=== PATIENT | female | born 1995 | race Hispanic/Latino ===

== ENCOUNTER 2017-01-21 20:14 | Emergency (ER) | payer OTHER ==
[~2017-01-21] VITALS: Ht 160 cm; Wt 54.4 kg
[~2017-01-21 20:14] MED LIST: AMOXICILLIN500 MG PO; DEPO-PROVE150 MG/1 M IM; ESCITALOPRAM OX10 MG PO; IBUPROFEN600 MG PO; IBUPROFEN800 MG PO; NORCO 5-325 TA1 EACH PO; TRINESSA LO TA1 EACH PO
[2017-01-21] MEDS ORDERED: MICROGESTIN FE1 EACH PO (20:45)
[2017-01-21] MEDS ORDERED: VENTOLIN HFA18 GM (20:45)
[2017-01-21] MEDS ORDERED: ZOFRAN ODT4 MG PO (20:53)
== END 2017-01-21 21:04 | disposition home or self-care (01) ==
LOC: ED 20:14
DX: A08.4 Viral intestinal infection, unspecified (principal); F17.200 Nicotine dependence, unspecified, uncomplicated
CPT/HCPCS: 99283

== ENCOUNTER 2017-02-24 19:29 | Emergency (ER) | payer OTHER ==
[~2017-02-24] VITALS: Ht 160 cm; Wt 54.4 kg
[~2017-02-24 19:29] MED LIST changes: +MICROGESTIN FE1 EACH PO; +VENTOLIN HFA18 GM; +ZOFRAN ODT4 MG PO
[2017-02-24] MEDS ORDERED: BACTRIM DS TAB1 EACH PO (19:44)
[2017-02-24] MEDS ORDERED: TRAMADOL HCL50 MG PO (23:11)
== END 2017-02-24 23:25 | disposition home or self-care (01) ==
LOC: ED 19:29
DX: N83.202 Unspecified ovarian cyst, left side (principal); F17.200 Nicotine dependence, unspecified, uncomplicated; Z79.899 Other long term (current) drug therapy
CPT/HCPCS: 74177; 80053; 81001; 84703; 85025; 96361; 96374; 99284; J1885; J7030; Q9967

== ENCOUNTER 2017-05-08 18:48 | Emergency (ER) | payer OTHER ==
[~2017-05-08] VITALS: Ht 160 cm; Wt 55.8 kg
[~2017-05-08 18:48] MED LIST changes: +BACTRIM DS TAB1 EACH PO; +TRAMADOL HCL50 MG PO
[2017-05-24] MEDS ORDERED: PRENATAL GUMMI1 EACH PO (00:20)
== END 2017-05-08 21:43 | disposition home or self-care (01) ==
LOC: ED 18:48
DX: R10.30 Lower abdominal pain, unspecified (principal); Z33.1 Pregnant state, incidental; F17.200 Nicotine dependence, unspecified, uncomplicated; Z79.899 Other long term (current) drug therapy
CPT/HCPCS: 36415; 80053; 81001; 84702; 84703; 85025; 99283

== ENCOUNTER 2017-05-23 23:40 | Emergency (ER) | payer OTHER ==
[~2017-05-23] VITALS: Ht 160 cm; Wt 55.3 kg
[2017-05-24] MEDS ORDERED: PRENATAL GUMMI1 EACH PO ×2 (00:20)
[2017-05-24] MEDS ORDERED: REGLAN10 MG PO (00:27)
[2017-05-24] MEDS ORDERED: DICLEGIS DR 101 EACH PO (01:44)
== END 2017-05-24 02:58 | disposition home or self-care (01) ==
LOC: ED 23:40
DX: O21.9 Vomiting of pregnancy, unspecified (principal); Z87.891 Personal history of nicotine dependence; Z79.899 Other long term (current) drug therapy; Z3A.01 Less than 8 weeks gestation of pregnancy
CPT/HCPCS: 80053; 81001; 85025; 96361; 96374; 99283; J2405; J7030; J7040

== ENCOUNTER 2017-05-25 19:17 | Emergency (ER) | payer OTHER ==
[~2017-05-25] VITALS: Ht 160 cm; Wt 54.4 kg
[~2017-05-25 19:17] MED LIST changes: +DICLEGIS DR 101 EACH PO; +PRENATAL GUMMI1 EACH PO; +REGLAN10 MG PO
== END 2017-05-25 23:52 | disposition home or self-care (01) ==
LOC: ED 19:17
DX: O21.0 Mild hyperemesis gravidarum (principal); Z79.899 Other long term (current) drug therapy; Z3A.01 Less than 8 weeks gestation of pregnancy
CPT/HCPCS: 80053; 81001; 83690; 85025; 96374; 99283; J2405

== ENCOUNTER 2017-06-17 21:02 | Emergency (ER) | payer OTHER ==
[~2017-06-17] VITALS: Ht 160 cm; Wt 50.4 kg
[2017-06-17] MEDS ORDERED: ONDANSETRON ODT8 MG PO (21:23)
== END 2017-06-18 00:54 | disposition home or self-care (01) ==
LOC: ED 21:02
DX: O26.851 Spotting complicating pregnancy, first trimester (principal); Z79.899 Other long term (current) drug therapy; Z3A.10 10 weeks gestation of pregnancy
CPT/HCPCS: 76801; 80048; 81001; 84702; 85025; 96361; 96374; 99284; J2550; J7030

== ENCOUNTER 2019-05-02 17:35 | Emergency (ER) | payer OTHER ==
[~2019-05-02] VITALS: Ht 160 cm; Wt 50.4 kg
[~2019-05-02 17:35] MED LIST changes: +ONDANSETRON ODT8 MG PO
[2019-05-02] MEDS ORDERED: VITAMIN D21250 MCG PO (17:50)
[2019-05-02] MEDS ORDERED: DULOXETINE HCL30 MG PO (17:50)
[2019-05-02] MEDS ORDERED: NORCO 5-325 TA1 EACH PO (20:09)
[2019-05-02] MEDS ORDERED: BACTRIM DS TAB1 EACH PO (20:09)
== END 2019-05-02 22:54 | disposition home or self-care (01) ==
LOC: ED 17:35
DX: N39.0 Urinary tract infection, site not specified (principal); N83.202 Unspecified ovarian cyst, left side; Z79.899 Other long term (current) drug therapy
CPT/HCPCS: 76770; 76830; 76856; 80053; 81001; 84703; 85025; 87210; 87491; 87591; 96361; 99284-25; J1885; J2405; J7030

== ENCOUNTER 2019-06-15 22:29 | Emergency (ER) | payer OTHER ==
[~2019-06-15] VITALS: Ht 160 cm; Wt 65.8 kg
[~2019-06-15 22:29] MED LIST changes: +DULOXETINE HCL30 MG PO; +VITAMIN D21250 MCG PO
--- OUTSIDE RECORDS SUMMARY | 2019-06-15 22:32 | XMS ---
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 E.D. VISIT COUNT (12 MO.) [address] [facility] TOTAL 2 NOTE: Visits indicate total known visits. 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
== END 2019-06-16 00:30 | disposition home or self-care (01) ==
LOC: ED 22:29
DX: O99.89 Other specified diseases and conditions complicating pregnancy, childbirth and the puerperium (principal); M54.6 Pain in thoracic spine
CPT/HCPCS: 81001; 84703; 99283

== ENCOUNTER 2019-06-28 13:21 | Emergency (ER) | payer OTHER ==
[~2019-06-28] VITALS: Ht 160 cm; Wt 65.8 kg
--- OUTSIDE RECORDS SUMMARY | 2019-06-28 13:24 | XMS ---
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 Gurdeep/[place] Office: , [place] Office: [phone].\T\nbsp; [facility]: [phone]. E.D. VISIT COUNT (12 MO.) [address] [facility] TOTAL 3 NOTE: Visits indicate total known visits. ED/UCC VISIT TRACKING (12 MO.) 06/28/2019 13:22 [facility] TYPE: Emergency COMPLAINT: - DEHYDRATION, URINE PROBLEM, 6 WKS PREG. 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
[2019-06-28] MEDS ORDERED: ONDANSETRON ODT4 MG PO (13:41)
== END 2019-06-28 14:05 | disposition left against medical advice (07) ==
LOC: ED 13:21
DX: O21.9 Vomiting of pregnancy, unspecified (principal); Z3A.01 Less than 8 weeks gestation of pregnancy; Z87.891 Personal history of nicotine dependence
CPT/HCPCS: 81001; 99284

== ENCOUNTER 2019-08-24 22:56 | Emergency (ER) | payer OTHER ==
[~2019-08-24] VITALS: Ht 160 cm; Wt 65.8 kg
--- OUTSIDE RECORDS SUMMARY | ~2019-08-24 | XMS | Clinical Summary ---
Demographics + + + | Address | [address] | | | [place] [address] | + + + | Home Phone | | + + + | Preferred Language | Unknown | + + + | Marital Status | Single | + + + | Congregation Affiliation | Unknown | + + + | Race | Unknown | + + + | Ethnic Group | Unknown | + + + Author + + + | Author | [facility] (Historical as of | | | 12-14-18) | + + + | Organization | [facility] (Historical as of | | | 12-14-18) | + + + | Address | Unknown | + + + | Phone | Unavailable | + + + Support + + +---------+ + | Name | Relationship | Address | Phone | + + +---------+ + | Chandu Sunshine | ECON | Unknown | | + + +---------+ + Care Team Providers + +------+ + | Care Weir Fisherman Name | Role | Phone | + +------+ + | Andria Bryant PA-C | PP | | + +------+ + Allergies No Known Allergies Current Medications + +------+-------+---------+------+------+-------+ | Prescription | Sig. | Disp. 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 | 11/11/2018 | + + + + + | Overview: Added automatically from request for surgery [id number] | + + + + + | Ganglion cyst of volar aspect of right wrist | 11/11/2018 | + + + + + | Overview: Added automatically from request for surgery [id number] | + + Social History + +-------+ +--------+------+ | Tobacco Use | Types | Packs/Day | Years | Date | | | | | Used | | + +-------+ +--------+------+ | Current Every Day | | | | | | Smoker | | | | | + +-------+ +--------+------+ + +---+---+---+ | Smokeless Tobacco: | | | | | Never Used | | | | + +---+---+---+ + + | Comments: ONE CIG PER DAY | + + + + +---------+ + | Alcohol Use | Drinks/We | oz/Week | Comments | | | ek | | | + + +---------+ + | Yes | | | 2-3 DRINKS PER MONTH | + + +---------+ + + + + | Sex Assigned at | Date Recorded | | | | + + + | Not on file | | + + + Last Filed Vital Signs + + + + | Vital Sign | Reading | Time Taken | + + + + | Blood Pressure | 100/65 | 12/13/2018 12:30 PM PDT | + + + + | Pulse | 68 | 12/13/2018 12:30 PM PDT | + + + + | Temperature | 36.2 C (97.1 F) | 12/13/2018 12:25 PM PDT | + + + + | Respiratory Rate | 16 | 12/13/2018 12:29 PM PDT | + + + + | Oxygen Saturation | 95% | 12/13/2018 12:30 PM PDT | + + + + | Inhaled Oxygen | - | - | | Concentration | | | + + + + | Weight | 62.1 kg (137 lb) | 12/13/2018 10:07 AM PDT | + + + + | Height | 160 cm (5' 3") | 12/13/2018 10:07 AM PDT | + + + + | Body Mass Index | 24.27 | 12/13/2018 10:07 AM PDT | + + + + Plan of Treatment + + + + + | Health Maintenance | Due Date | Last Done | Comments | + + + + + | Well Child Check | | | | | | 1 | | | + + + + + | Vaccine: HPV (1 - | | | | | Female 3-dose | 3 | | | | series) | | | | + + + + + | Vaccine: | | | | | Pneumococcal 19-64 | 7 | | | | (PPSV23 only) Medium | | | | | Risk (1 of 1 - | | | | | PPSV23) | | | | + + + + + | Cervical Cancer | | | | | Screening (Pap) | 9 | | | + + + + + | Vaccine: Influenza | | | | | (Season Ended) | 0 | | | + + + + + | Vaccine: | | 10/22/2017 | | | Dtap/Tdap/Td (2 - | 8 | | | | Td) | | | | + + + + + Results Not on filefrom Last 3 Months Insurance + +--------+ +------+-------+ + | Payer | Benefi | Subscriber | Type | Phone | Address | | | t Plan | ID | | | | | | / | | | | | | | Group | | | | | + +--------+ +------+-------+ + | [employer] | PROVID | [id number] | PPO | | | | PLAN | ENCE | | | | | | | HEALTH | | | | | | | PLAN | | | | | + +--------+ +------+-------+ + | MEDICAID | MEDICA | [id number] | | | [address] | | | [place] | | | | [place] | | | [place] | | | | [phone] | + +--------+ +------+-------+ + + +--------+ +--------+ + + | Guarantor Name | Accoun | Relation to | Date | Phone | Billing Address | | | t Type | Patient | of | | | | | | | | | | + +--------+ +--------+ + + | BETSEY JEFFERY | Person | Self [birth year] Home: | [address] | | [place] | al/Fam | | 1995 | [phone] [place] [address] | | | triny | | | [phone] | | + +--------+ +--------+ + +
--- OUTSIDE RECORDS SUMMARY | ~2019-08-24 | XMS | Encounter Summary ---
Demographics + + + | Address | [address] | | | [place] [address] | + + + | Home Phone | | + + + | Preferred Language | Unknown | + + + | Marital Status | Single | + + + | Denominational Affiliation | Unknown | + + + | Race | Unknown | + + + | Ethnic Group | Unknown | + + + Author + + + | Author | [facility] | | | and [place] | + + + | Organization | [facility] | | | and [place] | + + + | Address | Unknown | + + + | Phone | Unavailable | + + + Support + + +---------+ + | Name | Relationship | Address | Phone | + + +---------+ + | Chandu Sunshine | ECON | Unknown | | + + +---------+ + Care Team Providers + +------+ + | Care Route Rider Supervisor Name | Role | Phone | + +------+ + | Andria Bryant PA-C | PCP | | + +------+ + Reason for Visit +---------+ + | Reason | Comments | +---------+ + | Post Op | | +---------+ + Encounter Details +--------+ + + + + | Date | Type | Department | Care Team | Description | +--------+ + + + + | 12/16/ | Telephone | [facility] | Reta Delgado, | Post Op | | 2019 | | [facility] | RN | | | | | LESLIE ROCIO PRE | | | | | | POST OP [address] | | | | | | [place], [place] | | | | | | [address] | | | | | | [phone] | | | +--------+ + + + + Social History + +-------+ +--------+------+ | Tobacco Use | Types | Packs/Day | Years | Date | | | | | Used | | + +-------+ +--------+------+ | Never Assessed | | | | | + +-------+ +--------+------+ + + + | Sex Assigned at | Date Recorded | | | | + + + | Not on file | | + + + + + + + | Job Start Date | Occupation | Industry | + + + + | Not on file | Not on file | Not on file | + + + + + + + + | Travel History | Travel Start | Travel End | + + + + + + | No recent travel history available. | + + documented as of this encounter Plan of Treatment Not on filedocumented as of this encounter Visit Diagnoses Not on filedocumented in this encounter"
--- OUTSIDE RECORDS SUMMARY | ~2019-08-24 | XMS | Encounter Summary ---
Demographics + + + | Address | [address] | | | [place] [address] | + + + | Home Phone | | + + + | Preferred Language | Unknown | + + + | Marital Status | Single | + + + | Alevism Affiliation | Unknown | + + + | Race | Unknown | + + + | Ethnic Group | Unknown | + + + Author + + + | Author | [facility] | | | and [place] | + + + | Organization | [facility] | | | and [place] [...] Team Providers + +------+ + | Care Inventory Assistant Name | Role | Phone | + +------+ + | Andria Bryant PA-C | PCP | | + +------+ + Reason for Visit +--------+ + | Reason | Comments | +--------+ + | Other | Return to work letter | +--------+ + Encounter Details +--------+ + + + + | Date | Type | Department | Care Team | Description | +--------+ + + + + | 12/17/ | Telephone | [facility] | Abhijeet Herrera, | Other (Return to | | 2018 | | [place] [address] | [address] | work letter) | | | | [address] [place], [place] | [place] [address] | | | | | [address] | [phone] | | | | | [phone] | | | +--------+ + + + [...]
--- OUTSIDE RECORDS SUMMARY | ~2019-08-24 | XMS | Encounter Summary ---
Demographics + + + | Address | [address] | | | [place] [address] | + + + | Home Phone | | + + + | Preferred Language | Unknown | + + + | Marital Status | Single | + + + | Anglican Affiliation | Unknown | + + + | Race | Unknown | + + + | Ethnic Group | Unknown | + + + Author + + + | Author | [facility] | | | and [place] | + + + | Organization | [facility] | | | and [place] | [...] Team Providers + +------+ + | Care Guest Experience Representative Name | Role | Phone | + +------+ + | Andria Bryant PA-C | PCP | | + +------+ + Reason for Visit +--------+ + | Reason | Comments | +--------+ + | Other | | +--------+ + Encounter Details +--------+ + + + + | Date | Type | Department | Care Team | Description | +--------+ + + + + | 12/16/ | Telephone | [facility] | Abhijeet Herrera, | Other | | 2018 | | [facility] [address] | [address] | | | | [address] [place], [place] | [place] [address] | | | | | [address] | [phone] | | | | | [phone] | | | +--------+ + + + [...]
--- OUTSIDE RECORDS SUMMARY | ~2019-08-24 | XMS | Encounter Summary ---
Demographics + + + | Address | [address] | | | [place] [address] | + + + | Home Phone | | + + + | Preferred Language | Unknown | + + + | Marital Status | Single | + + + | Sikhism Affiliation | Unknown | + + + | Race | Unknown | + + + | Ethnic Group | Unknown | + + + Author + + + | Author | [facility] | | | and [place] | + + + | Organization | [facility] | | | and [place] | [...] Team Providers + +------+ + | Care Waistband Setter Lockstitch Name | Role | Phone | + +------+ + | Andria Bryant PA-C | PCP | | + +------+ + Reason for Visit + + + | Reason | Comments | + + + | Emesis During | | | | | + + + Encounter Details +--------+ + + + + | Date | Type | Department | Care Team | Description | +--------+ + + + + | / | Emergency | [facility] | Kane Thompson MD | Hyperemesis arising | | 2019 | | [facility] | [address] | during | | | | CENTER [address] | [place] | (Primary Dx) | | | | [place] | [address] | | | | | [address] | | | | | | [phone] | | | +--------+ + + + + Social History + +-------+ +--------+------+ | Tobacco Use | Types | Packs/Day | Years | Date | | | | | Used | | + +-------+ +--------+------+ | Former Smoker | | | | | + +-------+ +--------+------+ + +---+---+---+ | Smokeless Tobacco: | | | | | Never Used | | | | + +---+---+---+ + + +---------+ + | Alcohol Use | Drinks/Week | oz/Week | Comments | + + +---------+ + | Never | | | | + + +---------+ + + + + + | Alcohol Habits | Answer | Date Recorded | + + + + | How often do you have a drink containing | Never | 06/28/2019 | | alcohol? | | | + + + + | How many drinks containing alcohol do you | Not asked | | | have on a typical day when you are | | | | drinking? | | | + + + + | How often do you have six or more drinks on | Not asked | | | one occasion? | | | + + + + + + + | Sex Assigned [...] + + documented as of this encounter Last Filed Vital Signs + + + + + | Vital Sign | Reading | Time Taken | Comments | + + + + + | Blood Pressure | 127/59 | 06/28/2019 6:23 PM | | | | | PST | | + + + + + | Pulse | 90 | 06/28/2019 6:23 PM | | | | | PST | | + + + + + | Temperature | 37.5 C (99.5 F) | 06/28/2019 3:44 PM | | | | | PST | | + + + + + | Respiratory Rate | 20 | 06/28/2019 6:23 PM | | | | | PST | | + + + + + | Oxygen Saturation | 94% | 06/28/2019 6:23 PM | | | | | PST | | + + + + + | Inhaled Oxygen | - | - | | | Concentration | | | | + + + + + | Weight | 66.2 kg (145 lb 15.1 | 06/28/2019 3:44 PM | | | | oz) | PST | | + + + + + | Height | 160 cm (5' 3") | 06/28/2019 3:44 PM | | | | | PST | | + + + + + | Body Mass Index | 25.85 | 06/28/2019 3:44 PM | | | | | PST | | + + + + + documented in this encounter Discharge Instructions Instructions Kane Thompson MD - 06/28/2019[place] plenty fluids. Return for symptoms dehydra tion. Follow-up with your OB doctor. AttachmentsThe following attachments cannot be sent through Care Everywhere.Wm enciso (Indonesian)documented in this encounter Medications at Time of Discharge + + + +---------+ + + | Medication | Sig | Dispensed | Refills | Start | End Date | | | | | | Date | | + + + +---------+ + + | | | | 0 | 07/08/20 | | | etonogestrel-ethinyl | | | | 19 | | | estradiol | | | | | | | (NUVARING) | | | | | | | 0.12-0.015 MG/24HR | | | | | | | vaginal ring | | | | | | + + + +---------+ + + | ondansetron | TK 1 T PO TID PRN | | 0 | 01/15/20 | | | (ZOFRAN) 8 MG tablet | | | | 19 | | + + + +---------+ + + documented as of this encounter Plan of Treatment + +------+--------+ + + | Name | Type | Priori | Associated Diagnoses | Date/Time | | | | ty | | | + +------+--------+ + + | ED INFORMATION | YVONNE | Routin | | 06/28/2019 3:35 PM | | EXCHANGE | | e | | PST | + +------+--------+ + + documented as of this encounter Procedures + +--------+ + + + | Procedure Name | Priori | Date/Time | Associated Diagnosis | Comments | | | ty | | | | + +--------+ + + + | URINALYSIS WITH | STAT | 06/28/2019 | | Results for this | | MICROSCOPIC WITH | | 4:38 PM | | procedure are in the | | CULTURE IF INDICATED | | PST | | results section. | + +--------+ + + + | ED INFORMATION | Routin | 06/28/2019 | | | | EXCHANGE | e | 3:35 PM | | | | | | PST | | | + +--------+ + + + +---+--------+ | | | | | Proced | | | ure | | | Note - | | | Filipe, | | | Lab In | | | | | | Hlseve | | | n - | | | / | | | 2020 | | | 3:36 | | | PM PST | | | | | | Format | | | ting | | | of | | | this | | | note | | | might | | | be | | | differ | | | ent | | | from | | | the | | | origin | | | al.COL | | | LECTIV | | | E?NOTI | | | FICATI | | | ON?/ | | | | | | 0 | | | 15:34? | | | GALLEG | | | OS, | | | BETSEY | | | | | | A?MRN: | | | | | | [id number] | | | [id number] | | | riteri | | | a Met | | | Care | | | Guidel | | | geoffrey | | | 4 | | | visits | | | in | | | 60Secu | | | rity | | | and | | | Safety | | | No | | | recent | | | | | | Securi | | | ty | | | Events | | | | | | curren | | | tly on | | | | | | fileED | | | Care | | | Guidel | | | geoffrey | | | from | | | [place] | | | ys - | | | [place] | | | laLast | | | | | | Update | | | d: | | | | | | 0 3:00 | | | PM | | | Care | | | Coordi | | | nation | | | :Recei | | | ves | | | mental | | | | | | health | | | | | | servic | | | es | | | with | | | [place] | | | ys.? | | | Please | | | | | | contac | | | t | | | [place] | | | ys | | | regard | | | ing | | | mental | | | | | | health | | | | | | concer | | | ns. | | | [place] | | | ton/Mi | | | lton | | | [place] | | | ter | | | Office | | | : | | | [phone] | | | [phone] | | | , | | | [place] | | | ton | | | Office | | | : | | | [phone] | | | [phone] | | | .? | | | [place] | | | ys | | | Crisis | | | : | | | [phone] | | | [phone] | | | .These | | | are | | | guidel | | | geoffrey | | | and | | | the | | | provid | | | er | | | should | | | | | | exerci | | | se | | | clinic | | | al | | | judgme | | | nt | | | when | | | provid | | | ing | | | care.P | | | rescri | | | ption | | | Drug | | | Report | | | (12 | | | Mo.)PD | | | MP | | | query | | | found | | | no | | | report | | | .E.D. | | | Visit | | | Count | | | (12 | | | mo.)Fa | | | cility | | | | | | Visits | | | Low | | | Acuity | | | | | | Provid | | | ence | | | St. | | | [facility] | | | Medica | | | l | | | Center | | | 1 0 | | | [facility] [place] | | | y | | | Hospit | | | al 3 0 | | | Total | | | 4 0 | | | Note: | | | Visits | | | | | | indica | | | te | | | total | | | known | | | visits | | | . | | | Medica | | | id Low | | | | | | Acuity | | | Dx | | | are | | | the | | | number | | | of | | | primar | | | y | | | diagno | | | ses on | | | the | | | Medica | | | id's | | | Low | | | Acuity | | | dx | | | list. | | | | | | Recent | | | | | | Emerge | | | ncy | | | Depart | | | ment | | | Visit | | | [place] | | | yDate | | | Facili | | | ty | | | City | | | State | | | Type | | | Diagno | | | ses or | | | Chief | | | | | | Compla | | | int | | | Feb | | | 29, | | | 2020 | | | Provid | | | ence | | | [facility] | | | [facility] | | | [place] | | | [place] | | | Emerge | | | ncy | | | | | | Dehydr | | | ated | | | Feb | | | 29, | | | 2020 | | | [facility] [place] | | | [facility] | | | [place] | | | [place] | | | Emerge | | | ncy | | | Chief | | | Compla | | | int: | | | DEHYDR | | | ATION, | | | URINE | | | | | | PROBLE | | | M, 6 | | | WKS | | | PREG. | | | Feb | | | 16, | | | 2020 | | | [facility] | | | [facility] | | | [place] | | | [place] | | | Emerge | | | ncy | | | Pain | | | in | | | thorac | | | ic | | | spine | | | Oth | | | | | | diseas | | | es and | | | | | | condit | | | ions | | | compl | | | preg/c | | | hldbrt | | | h Rickey | | | 3, | | | 2020 | | | [facility] | [facility] [place] | | | [facility] | | | [place] | | | [place] | | | Emerge | | | ncy | | | Other | | | long | | | term | | | (curre | | | nt) | | | drug | | | therap | | | y | | | Unspec | | | ified | | | abdomi | | | nal | | | pain | | | | | | Unspec | | | ified | | | ovaria | | | n | | | cyst, | | | left | | | side | | | | | | Urinar | | | y | | | tract | | | infect | | | ion, | | | site | | | not | | | specif | | | ied | | | Recent | | | | | | Inpati | | | ent | | | Visit | | | [facility] | | | yNo | | | record | | | ed | | | inpati | | | ent | | | visits | | | . Care | | | | | | TeamPr | | | ovider | | | | | | Specia | | | lty | | | Phone | | | Fax | | | Servic | | | e | | | Dates | | | HARRIE | | | S, | | | ANDRIA, | | | PA-C | | | Physic | | | kai | | | Assist | | | ant | | | Feb | | | 17, | | | 2020 - | | | | | | Curren | | | t | | | ANDRIA | | | HARRIE | | | S | | | Primar | | | y Care | | | | | | Curren | | | t | | | LEGACY | | | | | | PATIEN | | | T | | | BUSINE | | | SS | | | SERVIC | | | ES | | | Primar | | | y Care | | | | | | Curren | | | t | | | Álvarez, | | | | | | Bradle | | | y | | | Titi | | | MD | | | Treatm | | | ent | | | Curren | | | t | | | Collec | | | tive | | | Portal | | | This | | | patien | | | t has | | | regist | | | ered | | | at the | | | | | | Provid | | | ence | | | St[facility] | | | [facility] | | | Medica | | | l | | | Center | | | | | | Emerge | | | ncy | | | Depart | | | ment | | | For | | | more | | | inform | | | ation | | | visit: | | | | | | https: | | | //prov | | | .colle | | | ctivem | | | edical | | | .com/n | | | otify/ | | | [id number] | | | [phone] | | | [phone] | | | [phone] | | | [phone] | | | [phone] | | | | | | PLEASE | | | NOTE: | | | 1. | | | Any | | | care | | | recomm | | | endati | | | ons | | | and | | | other | | | clinic | | | al | | | inform | | | ation | | | are | | | provid | | | ed as | | | guidel | | | geoffrey | | | or for | | | | | | histor | | | ical | | | purpos | | | es | | | only, | | | and | | | provid | | | ers | | | should | | | | | | exerci | | | se | | | their | | | own | | | clinic | | | al | | | judgme | | | nt | | | when | | | provid | | | ing | | | care. | | | 2. | | | You | | | may | | | only | | | use | | | this | | | inform | | | ation | | | for | | | purpos | | | es of | | | treatm | | | ent, | | | paymen | | | t or | | | health | | | care | | | operat | | | ions | | | activi | | | ties, | | | and | | | subjec | | | t to | | | the | | | limita | | | tions | | | of | | | applic | | | able | | | Collec | | | tive | | | Polici | | | es. | | | 3. | | | You | | | should | | | | | | consul | | | t | | | direct | | | ly | | | with | | | the | | | organi | | | zation | | | that | | | provid | | | ed a | | | care | | | guidel | | | ine or | | | other | | | | | | clinic | | | al | | | histor | | | y with | | | any | | | questi | | | ons | | | about | | | additi | | | onal | | | inform | | | ation | | | or | | | accura | | | cy or | | | comple | | | teness | | | of | | | inform | | | ation | | | provid | | | ed.? | | | 2020 | | | Collec | | | tive | | | Medica | | | l | | | Techno | | | logies | | | , Inc. | | | - | | | [email or web address] | | | llecti | | | vemedi | | | [email or web address] | | | m | +---+--------+ documented in this encounter Results Urinalysis with Microscopic with Culture if Indicated (06/28/2019 4:38 PM PST) + + + + + + | Component | Value | Ref Range | Performed | Pathologist | | | | | At | Signature | + + + + + + | Color, | Niharika (A) | Light Yellow, | [facility] | | | Urine | | Yellow, Straw | [facility] | | | | | | [facility] | | | | | | C[facility] - | | | | | | LABORATORY | | + + + + + + | Clarity | Hazy (A) | Clear | [facility] | | | | | | [facility] | | | | | | [facility] | | | | | | C[facility] - | | | | | | LABORATORY | | + + + + + + | pH, Urine | 6.0 | 5.0 - 8.0 | [facility] | | | | | | [facility] | | | | | | MEDICAL | | | | | | C[facility] - | | | | | | LABORATORY | | + + + + + + | Specific | 1.034 (H) | 1.001 - 1.030 | [facility] | | | [place], | | | [facility] | | | Urine | | | MEDICAL | | | | | | CENTER - | | | | | | LABORATORY | | + + + + + + | Protein, | 30 mg/dL (A) | Negative | [facility] | | | Urine | | | [facility] | | | | | | MED[facility] | | | | | | CENTER - | | | | | | LABORATORY | | + + + + + + | Blood, | Negative | Negative | [facility] | | | Urine | | | [facility] | | | | | | MEDICAL | | | | | | CENTER - | | | | | | LABORATORY | | + + + + + + | Glucose, | Negative | Negative | [facility] | | | Urine | | | [facility] | | | | | | MED[facility] | | | | | | CENTER - | | | | | | LABORATORY | | + + + + + + | Ketones, | 80 mg/dL (A) | Negative | [facility] | | | Urine | | | [facility] | | | | | | [facility] | | | | | | CENTER - | | | | | | LABORATORY | | + + + + + + | Bilirubin, | Negative | Negative | [facility] | | | Urine | | | [facility] | | | | | | MEDICAL | | | | | | CENTER - | | | | | | LABORATORY | | + + + + + + | Nitrite, | Negative | Negative | [facility] | | | Urine | | | [facility] | | | | | | MEDICAL | | | | | | CENTER - | | | | | | LABORATORY | | + + + + + + | Leukocyte | Negative | Negative | [facility] | | | Esterase, | | | [facility] | | | Urine | | | MEDICAL | | | | | | CENTER - | | | | | | LABORATORY | | + + + + + + | Urobilinoge | 2.0 mg/dL (A) | 0.2 mg/dL, 1.0 | [facility] | | | n, Urine | | mg/dL, Negative | [facility] | | | | | | MEDICAL | | | | | | CENTER - | | | | | | LABORATORY | | + + + + + + | White Blood | 0-2 | 0 - 2 /HPF | [facility] | | | Cells, | | | [facility] | | | Urine | | | MEDICAL | | | | | | CENTER - | | | | | | LABORATORY | | + + + + + + | Red Blood | 2-5 (A) | 0 - 2 /HPF | [facility] | | | Cells, | | | [facility] | | | Urine | | | MEDICAL | | | | | | CENTER - | | | | | | LABORATORY | | + + + + + + | Squamous | 50-100 (A) | 0 - 2 /LPF | [facility] | | | Epithelial | | | [facility] | | | Cells, | | | MEDICAL | | | Urine | | | CENTER - | | | | | | LABORATORY | | + + + + + + | Bacteria, | Negative | Negative /HPF | [facility] | | | Urine | | | [facility] | | | | | | MEDICAL | | | | | | CENTER - | | | | | | LABORATORY | | + + + + + + | Mucus, | Present (A) | Negative /LPF | [facility] | | | Urine | | | [facility] | | | | | | MEDICAL | | | | | | CENTER - | | | | | | LABORATORY | | + + + + + + | Urine | Urine Culture Not | | [facility] | | | Comment | Indicated | | [facility] | | | | | | MEDICAL | | | | | | CENTER - | | | | | | LABORATORY | | + + + + + + + + | Specimen | + + | Urine - Urine | | specimen obtained by | | clean catch | | procedure (specimen) | + + + + + + + | Performing | Address | City/State/Zipcode | Phone Number | | Organization | | | | + + + + + | [facility] | [address] | [place], [place] | [phone] | | [facility] | | [address] | | | - LABORATORY | | | | + + + + + documented in this encounter Visit Diagnoses + + | Diagnosis | + + | Hyperemesis arising during - Primary Mild hyperemesis gravidarum, | | unspecified as to episode of care | + + documented in this encounter Administered Medications + +---------+ +--------+-------+------+ | Medication Order | MAR | Action | Dose | Rate | Site | | | Action | Date | | | | + +---------+ +--------+-------+------+ | sodium chloride 0.9% (NS) bolus | New Bag | 06/28/19 | 1,986 | 993 | | | 1,986 mL 1,986 mL (30 mL/kg | | 20 4:34 | mLs | mL/hr | | | 66.2 kg), Intravenous, | | PM PST | | | | | Administer over 2 Hours, ONCE, | | | | | | | 06/28/19 at 1615, For 1 dose | | | | | | + +---------+ +--------+-------+------+ +---+---+ | | | +---+---+ documented in this encounter
--- OUTSIDE RECORDS SUMMARY | ~2019-08-24 | XMS | Clinical Summary ---
Demographics + + + | Address | [address] | | | [place] [address] | + + + | Home Phone | | + + + | Preferred Language | Unknown | + + + | Marital Status | Single | + + + | Gnosticist Affiliation | Unknown | + + + | Race | Unknown | + + + | Ethnic Group | Unknown | + + + Author + + + | Author | [facility] | | | and [place] | + + + | Organization | [facility] | | | and [place] [...] Team Providers + +------+ + | Care Captain Cannery Tender Name | Role | Phone | + +------+ + | Andria Bryant PA-C | PCP | | + +------+ + Allergies No Known Allergies Medications + + + +---------+------+------+-------+ | Medication | Sig | Dispensed | Refills | Star | End | Statu | | | | | | t | Date | s | | | | | | Date | | | + + + +---------+------+------+-------+ | | | | 0 | 07/0 | | Activ | | etonogestrel-ethinyl | | | | 8/20 | | e | | estradiol | | | | 19 | | | | (NUVARING) | | | | | | | | 0.12-0.015 MG/24HR | | | | | | | | vaginal ring | | | | | | | + + + +---------+------+------+-------+ | ondansetron | TK 1 T PO TID PRN | | 0 | 12/29 | | Activ | | (ZOFRAN) 8 MG tablet | | | | 11/16 | | e | | | | | | 19 | | | + + + +---------+------+------+-------+ Active Problems + + + | | Comments | + + + | Yes | | + + + No known active problems Encounters +--------+ + + + + | Date | Type | Specialty | Care Team | Description | +--------+ + + + + | / | Emergency | Emergency Medicine | Kane Thompson MD | Hyperemesis arising | | 2020 | | | | during | | | | | | (Primary Dx) | +--------+ + + + + from Last 3 Months Social History + +-------+ +--------+------+ | Tobacco [...] + + + + + + | | Comments | + + + | Yes | | + + + + + [...] recent travel history available. | + + Last Filed Vital Signs + [...] | | + + + + + Plan of Treatment [...] + + + | Vaccine: | | 10/22/2017, 10/10/2001, | | | Dtap/Tdap/Td (7 - | 8 | 10/12/1999, Additional history | | | Td) | | exists | | + + + + + Procedures + +--------+ + + + | [...] | | n - | | | | | | 2019 | | | 3:36 | | | [...] A?MRN: | | | | | | [id number] | | | [id number] | | | riteri | | | [...] | | | d: | | | 2/21/2 | | | 0 3:00 | | [...] | | | St. | | | [place] | | | y | | | [...] | | | St. | | | [place] | | | y H. | | [...] | | | St. | | | [place] | | | y H. | | [...] | | | St. | | | [place] | | | y H. | | [...] | | | -[id number]- | | | [id number] | | | [id number] | | | [...] [email or web address] | | | m | +---+--------+ from Last 3 Months Results Urinalysis with Microscopic with Culture if [...] | | | | | | [facility] | | | | | | MEDICAL [...] - 1.030 | [facility] | | | [place], | | | [facility] | | [...] | | Comment | Indicated | | [facility] | | | | | | [...] + + | [facility] | [address] | [place] | [phone] | | [facility] | | [address] | | | - LABORATORY | | | | + + + + + from Last 3 Months Insurance + +--------+ +--------+ +---------+--------+ | Payer | Benefi | Subscriber | Effect | Phone | Address | Type | | | t Plan | ID | silver | | | | | | / | | Dates | | | | | | Group | | | | | | + +--------+ +--------+ +---------+--------+ | [facility] | PHP | [id number] | 04/30/19 | [phone] | | PPO | | PLAN | PEBB | | 20-Pre | 5 | | | | | STATEW | | sent | | | | | | [place]HA | | | | | | + +--------+ +--------+ +---------+--------+ | [facility] | PHP | [id number] | 05/31/19 | [phone] | | PPO | | PLAN | PEBB | | 18-Pre | 5 | | | | | STATEW | | sent | | | | | | USHA | | | | | | + +--------+ +--------+ +---------+--------+ | [place] | MEDICA | [id number] | | [phone] | | Medica | | | [place] | | 019-Pr | 2 | | id | | | PLUS | | esent | | | | + +--------+ +--------+ +---------+--------+ + +--------+ +--------+ + + | Guarantor Name | Accoun | Relation to | Date | Phone | Billing Address | | | t Type | Patient | of | | | | | | | | | | + +--------+ +--------+ + + | Betsey Redding | Person | Self | [birth year] | | [address] | | [place] | al/Fam | | 1996 | [phone] | [place] [address] | | | triny | | | 5 (Home) | | + +--------+ +--------+ + + | Betsey Redding | Person | Self | [birth year] | | [address] | | [place] | al/Fam | | 1996 | [phone] | [place] [address] | | | triny | | | 5 (Home) | | + +--------+ +--------+ + + Advance Directives + + + + + | Type | Date Recorded | Patient | Explanation | | | | Equine Manager | | + + + + + | Power of | | | | | Superintendent Distribution | | | | + + + + + | Advance | 06/28/2019 5:04 | | | | Directive | PM | | | + + + + +
--- OUTSIDE RECORDS SUMMARY | ~2019-08-24 | XMS | Encounter Summary ---
Demographics + + + | Address | [address] | | | [place] [address] | + + + | Home Phone | | + + + | Preferred Language | Unknown | + + + | Marital Status | Single | + + + | Scientologist Affiliation | Unknown | + + + | Race | Unknown | + + + | Ethnic Group | Unknown | + + + Author + + + | Author | [facility] | | | and [place] | + + + | Organization | [facility] | | | and [place] [...] Team Providers + +------+ + | Care Chemist Assistant Name | Role | Phone | [...] Post Op | | 2019 | | [facility] | RN | | | | | LES[facility]IE ROCIO PRE | | | | | | POST OP [id number] | | | | | | [place], [place] | | | | | | [address] | | | | | | [phone] | | | +--------+ + + + [...]
--- OUTSIDE RECORDS SUMMARY | ~2019-08-24 | XMS | Encounter Summary ---
Demographics + + + | Address | [address] | | | [place] [address] | + + + | Home Phone | | + + + | Preferred Language | Unknown | + + + | Marital Status | Single | + + + | Sikhism Affiliation | Unknown | + + + | Race | Unknown | + + + | Ethnic Group | Unknown | + + + Author + + + | Author | [facility] | | | and [place] | + + + | Organization | [facility] | | | and [...] Team Providers + +------+ + | Care Ferry Terminal Supervisor Name | Role | Phone | + +------+ + | Andria Bryant PA-C | PCP | | + +------+ + Encounter Details +--------+ + + + + | Date | Type | Department | Care Team | Description | +--------+ + + + + | 12/12/ | Preadmit | [facility] | | | | 2019 | Visit | [facility] | | | | | | [facility] | | | | | | [facility] | | | | | | [address] | | | | | | [place] | | | | | | [address] | | | | | | [phone] | | | +--------+ + + + [...] + + + | Blood Pressure | - | - | | + + + + + | Pulse | - | - | | + + + + + | Temperature | - | - | | + + + + + | Respiratory Rate | - | - | | + + + + + | Oxygen Saturation | - | - | | + + + + + | Inhaled Oxygen | - | - | | | Concentration | | | | + + + + + | Weight | 62.9 kg (138 lb 9.6 | 12/12/2018 4:00 PM | | | | oz) | PDT | | + + + + + | Height | 160 cm (5' 3") | 12/12/2018 4:00 PM | | | | | PDT | | + + + + + | Body Mass Index | 24.55 | 12/12/2018 4:00 PM | | | | | PDT | | + + + + + documented in this encounter Plan of Treatment Not on filedocumented as of this encounter Visit Diagnoses Not on filedocumented in this encounter
--- OUTSIDE RECORDS SUMMARY | ~2019-08-24 | XMS | Encounter Summary ---
Demographics + + + | Address | [address] | | | [place] [address] | + + + | Home Phone | | + + + | Preferred Language | Unknown | + + + | Marital Status | Single | + + + | Moravian Affiliation | Unknown | + + + | Race | Unknown | + + + | Ethnic Group | Unknown | + + + Author + + + | Author | [facility] | | | and [place] | + + + | Organization | [facility] | | | and [place] [...] Team Providers + +------+ + | Care Equal Opportunity Assistant Name | Role | Phone | + +------+ + | Andria Bryant PA-C | PCP | | + +------+ + Encounter Details +--------+ + + + + | Date | Type | Department | Care Team | Description | +--------+ + + + + | 12/12/ | Orders Only | [facility] | Jenn Hidalgo RN | | | 2018 | | [facility] | | | | | | [facility] | | | | | | [facility] | | | | | | [address] | | | | | | [place], [place] | | | | | | [address] | | | | | | [phone] | | | +--------+ + + + [...]
--- OUTSIDE RECORDS SUMMARY | ~2019-08-24 | XMS | Encounter Summary ---
Demographics + + + | Address | [address] | | | [place] [address] | + + + | Home Phone | | + + + | Preferred Language | Unknown | + + + | Marital Status | Single | + + + | Caodaism Affiliation | Unknown | + + + | Race | Unknown | + + + | Ethnic Group | Unknown | + + + Author + + + | Author | [facility] | | | and [place]tar[place] | + + + | Organization | [facility] | | | and Avtarana [...] Team Providers + +------+ + | Care Construction Plumber Name | Role | Phone | + +------+ + | Andria Bryant PA-C | PCP | | + +------+ + Encounter Details +--------+ + + + + | Date | Type | Department | Care Team | Description | +--------+ + + + + | 12/12/ | Orders Only | [facility] | Jenn Hidalgo RN | | | 2018 | | [facility] | | | | | | [place] CHAN | | | | | | [facility] | | | | | | [address] | | | | | | [place], [place] | | | | | | [address] | | | | | | [phone] | | | +--------+ + + + [...]
--- OUTSIDE RECORDS SUMMARY | ~2019-08-24 | XMS | Clinical Summary ---
Demographics + + + | Address | [address] | | | [place] [address] | + + + | Home Phone | | + + + | Preferred Language | Unknown | + + + | Marital Status | Single | + + + | Sikhism Affiliation | Unknown | + + + | Race | Unknown | + + + | Ethnic Group | Unknown | + + + Author + + + | Author | [facility] | | | and [place]tarana | + + + | Organization | [facility] | | | and Avtarana [...] Team Providers + +------+ + | Care Body Engineer Name | Role | Phone | + [...] A?MRN: | | | | | | [id number] | | | [id number] | | | riteri | | | [...] | | | St. | | | [place] | | | y | | | [...] | | | St. | | | [place] | | | y H. | | [...] | | | St. | | | [place] | | | y H. | | [...] | | | St. | | | [place] | | | y H. | | [...] | | | -86d1- | | | [id number] | | | [id number] | | | [...] - 1.030 | [facility] | | | [place], | | | [facility] | | [...] [address] | [place] | [phone] | | [facility] | | [address] | | | - LABORATORY | | [...] +---------+--------+ | [facility] | PHP | [id number] | 04/30/19 | [phone] | | PPO | | PLAN | PEBB | | 20-Pre | 5 | | | | | STATEW | | sent | | | | | | USHA | | | | | | + +--------+ +--------+ +---------+--------+ | [facility] | PHP | [id number] | 05/31/19 | [phone] | | PPO | | PLAN | PEBB | | 18-Pre | 5 | | | | | STATEW | | sent | | | | | | USHA | | | | | | + +--------+ +--------+ +---------+--------+ | [place]ICAID [place] | MEDICA | [id number] | | [phone] | | Medica | [...] | 1996 | [phone] | [place] [address] | | | triny | | | 5 (Home) | | + +--------+ +--------+ + + | Betsey Redding | Person | Self | [birth year] | [address] | | [place] | al/Fam | | 1996 | [phone] | [place] [address] | | | triny | | | 5 (Home) | | + +--------+ +--------+ + + Advance Directives + + + + + | Type | Date Recorded | Patient | Explanation | | | | Commodity Management Specialist | | + + + + + | Power of | | | | | X Ray Operator | | | | + + + + + | Advance | 06/28/2019 5:04 | | | | Directive | PM | | | + + + + +
--- OUTSIDE RECORDS SUMMARY | ~2019-08-24 | XMS | Clinical Summary ---
Demographics + + + | Address | [address] | | | [place] [address] | + + + | Home Phone | | + + + | Preferred Language | Unknown | + + + | Marital Status | Single | + + + | Bahai Affiliation | Unknown | + + + | Race | Unknown | + + + | Ethnic Group | Unknown | + + + Author + + + | Author | [facility] (Historical as of | | | 12-14-18) | + + + | Organization | [facility] (Historical as of | | | 12-14-18) [...] Team Providers + +------+ + | Care Superintendent Sanitation Name | Role | Phone | + [...] Overview: Added automatically from request for surgery [id number] | + + + + + | Ganglion cyst of volar aspect of right wrist | 11/11/2018 | + + + + + | Overview: Added automatically from request for surgery [id number] | + + Social History + +-------+ [...] + | [facility] | PROVID | [id number] | PPO | | | | PLAN | ENCE | | | | | | | HEALTH | | | | | | | PLAN | | | | | + +--------+ +------+-------+ + | MEDICAID | MEDICA | [id number] | | | [address] | | | [place] | | | | [place] | | | [place] | | | | [address] | + +--------+ +------+-------+ + + +--------+ +--------+ + + | Guarantor Name | Accoun | Relation to | Date | Phone | Billing Address | | | t Type | Patient | of | | | | | | | | | | + +--------+ +--------+ + + | BETSEY JEFFERY | Person | Self | [birth year] | Home: | [address] | | [place] | al/Fam | | 1995 | [phone] | [place] [address] | | | triny | | | [phone] | | + +--------+ +--------+ + +
--- OUTSIDE RECORDS SUMMARY | ~2019-08-24 | XMS | Encounter Summary ---
Demographics + + + | Address | [address] | | | [place] [address] | + + + | Home Phone | | + + + | Preferred Language | Unknown | + + + | Marital Status | Single | + + + | Synagogue Affiliation | Unknown | + + + | Race | Unknown | + + + | Ethnic Group | Unknown | + + + Author + + + | Author | [facility] | | | and [place]tar[place] | + + + | Organization | [facility] | | | and [...] Team Providers + +------+ + | Care Bell Neck Hammerer Name | Role | Phone | + [...] | Other | | 2018 | | [place] [address] | [address] | | | | | [address] [place], [place] | [place] [address] | | | | | [address] | [phone] | | | | | [phone] | | | +--------+ + + + [...]
--- OUTSIDE RECORDS SUMMARY | ~2019-08-24 | XMS | Encounter Summary ---
Demographics + + + | Address | [address] | | | [place] [address] | + + + | Home Phone | | + + + | Preferred Language | Unknown | + + + | Marital Status | Single | + + + | Samaritan Affiliation | Unknown | + + + | Race | Unknown | + + + | Ethnic Group | Unknown | + + + Author + + + | Author | [facility] | | | and [place]tarana | + + + | Organization | [facility] | | | and [...] Team Providers + +------+ + | Care Show Host Or Hostess Name | Role | Phone | + [...] | | | | CENTER [address] | [place] | (Primary Dx) | | | | [place] | [address] | | | | | [address] | | | | | | [phone] | | | +--------+ + + + [...] cannot be sent through Care Everywhere.Wm enciso (Macedonian)documented in this encounter Medications at Time of [...] A?MRN: | | | | | | [id number] | | | [id number] | | | riteri | | | [...] | | | St. | | | [place] | | | y | | | [...] | | | St. | | | [place] | | | y H. | | [...] | | | St. | | | [place] | | | y H. | | [...] | | | St. | | | [place] | | | y H. | | [...] | | | -86d1- | | | [id number] | | | [id number] | | | [...] - 1.030 | [facility] | | | [place], | | | [facility] | | [...] + | [address] | [address] | [place], [place] | [phone] | | [facility] | | [address] | | | - LABORATORY | | [...]
--- OUTSIDE RECORDS SUMMARY | ~2019-08-24 | XMS | Encounter Summary ---
Demographics + + + | Address | [address] | | | [place] [address] | + + + | Home Phone | | + + + | Preferred Language | Unknown | + + + | Marital Status | Single | + + + | Jewish Affiliation | Unknown | + + + | Race | Unknown | + + + | Ethnic Group | Unknown | + + + Author + + + | Author | [facility] | | | and [place]tar[place] | + + + | Organization | [facility] | | | [...] Team Providers + +------+ + | Care Insurance Professional Name | Role | Phone | + +------+ + | Andria Bryant PA-C | PCP | | + +------+ + Reason for Visit + + + | Reason | Comments | + + + | Post-op Exam | Right wrist | + + + Service/Procedure (Routine) + +--------+ + + + + | Status | Reason | Specialty | Diagnoses / | Referred By | Referred To | | | | | Procedures | Contact | Contact | + +--------+ + + + + | Pending | | | Diagnoses | Henri, | Sharon, | | Review | | | Ganglion of | Willie Tyler, | Abhijeet Dumont MD | | | | | right wrist | [address] | [address] | | | | | | [address] | [facility], | | | | | | [place], | [place] [address] | | | | | | [place] | Phone: | | | | | | [address] | [phone] | | | | | | Phone: | Fax: | | | | | | [phone] | [phone] | | | | | | Fax: | | | | | | | [phone] | | + +--------+ + + + + Encounter Details +--------+---------+ + + + | Date | Type | Department | Care Team | Description | +--------+---------+ + + + | 12/26/ | Office | [facility] | Abhijeet Herrera, | Injury of triangular | | 2019 | Visit | [facility] | MD [address] | fibrocartilage | | | | MEDICINE [place] | [place] [address] | complex (TFCC) of | | | | [address] | [phone] | right wrist, initial | | | | [place], [place] | | encounter (Primary | | | | [address] | | Dx) | | | | [phone] | | | +--------+---------+ + + + Social History + +-------+ [...] + + + | Blood Pressure | 96/64 | 12/26/2018 1:11 PM | | | | | PDT | | + + + + + | Pulse | 75 | 12/26/2018 1:11 PM | | | | | PDT | | + + + + + | Temperature | - | - | | + + + + + | Respiratory Rate | - | - | | + + + + + | Oxygen Saturation | 98% | 12/26/2018 1:11 PM | | | | | PDT | | + + + + + | Inhaled Oxygen | - | - | | | Concentration | | | | + + + + + | Weight | 62.4 kg (137 lb 9.6 | 12/26/2018 1:11 PM | | | | oz) | PDT | | + + + + + | Height | 160 cm (5' 3") | 12/26/2018 1:11 PM | | | | | PDT | | + + + + + | Body Mass Index | 24.37 | 12/26/2018 1:11 PM | | | | | PDT | | + + + + + documented in this encounter Progress Abhijeet Del Real MD - 12/26/2018 1:00 PM PDTFormatting of this note might be different fro m the original. [facility]: Orthopedic Surgery Patient Name:Allison Redding AGE: 23 y.o. :1995 CHIEF COMPLAINT: Post-op Exam (Right wrist ) HPI HISTORY OF PRESENT ILLNESS Patient overall doing well. No complications noted. No signs of infection. REVIEW OF SYSTEMS Review of Systems No past medical history on file. No past surgical history on file. No Known Allergies Prior to Admission medications Medication Sig Start Date End Date Taking? Authorizing Provider etonogestrel-ethinyl estradiol (NUVARING) 0.12-0.015 MG/24HR vaginal ring 11/04/18 Pitoi buzz Driscoll MD No family history on file. Social History Socioeconomic History Marital status: Single Spouse name: Not on file Number of children: Not on file Years of education: Not on file Highest education level: Not on file Social Needs Financial resource strain: Not on file Food insecurity - worry: Not on file Food insecurity - inability: Not on file Transportation needs - medical: Not on file Transportation needs - non-medical: Not on file Occupational History Not on file Tobacco Use Smoking status: Not on file Substance and Sexual Activity Alcohol use: Not on file Drug use: Not on file Sexual activity: Not on file Other Topics Concern Not on file Social History Narrative Not on file PHYSICAL EXAM Vital Signs: BP 96/64 | Pulse 75 | Ht 1.6 m (5' 3") | Wt 62.4 kg (137 lb 9.6 oz) | SpO2 98% | BMI 2 4.37 kg/m Physical Exam Ortho Exam Wound healing no signs of infection Neurovascularly intact, Motor and sensation grossly intact Brisk cap refill 2+ pulses No signs of complication PROBLEM LIST Encounter Diagnosis Name Primary? 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 Gradual strengthening. Follow-up in 4 to 6 weeks if any issu es [email or web address] Primary Care Physician: SONDRA Dos Santos MD This document has been prepared with Oonair voice recognition system. The possibility of "s ound alike" side hemmer errors, and additions, or deletions may occur. If there is any que stion with respect to clarity of the message being conveyed, please contact me directly for clarification. documented in this en counter Plan of Treatment Not on filedocumented as of this encounter Procedures + +--------+ + + + | Procedure Name | Priori | Date/Time | Associated Diagnosis | Comments | | | ty | | | | + +--------+ + + + | PATHOLOGY - EXTERNAL | | 12/31/2018 | | Results for this | | SCAN | | 12:00 AM | | procedure are in the | | | | PDT | | results section. | + +--------+ + + + documented in this encounter Results PATHOLOGY - EXTERNAL SCAN (12/31/2018 12:00 AM PDT) + + + | Narrative | Performed At | + + + | Ordered by an | | | unspecified provider. | | + + + documented in this encounter Visit Diagnoses + + | Diagnosis | + + | Injury of triangular fibrocartilage complex (TFCC) of right wrist, initial encounter - | | Primary | + + documented in this encounter
--- OUTSIDE RECORDS SUMMARY | ~2019-08-24 | XMS | Encounter Summary ---
Demographics + + + | Address | [address] | | | [place] [address] | + + + | Home Phone | | + + + | Preferred Language | Unknown | + + + | Marital Status | Single | + + + | Holiness Affiliation | Unknown | + + + | Race | Unknown | + + + | Ethnic Group | Unknown | + + + Author + + + | Author | [facility] | | | and [place]tar[place] | + + + | Organization | [facility] | | | and [place]tarana [...] Team Providers + +------+ + | Care Barrel Repairer Name | Role | Phone | + +------+ + | Andria Bryant PA-C | PCP | | + +------+ + Encounter Details +--------+ + + + + | Date | Type | Department | Care Team | Description | +--------+ + + + + | 12/12/ | Preadmit | [facility] | | | | 2019 | Visit | [facility] | | | | | | [place]AN | | | | | | [facility] | | | | | | [address] | | | | | | [place] | | | | | | [address] | | | | | | [phone] | | | +--------+ + + + [...]
--- OUTSIDE RECORDS SUMMARY | ~2019-08-24 | XMS | Encounter Summary ---
Demographics + + + | Address | [address] | | | [place] [address] | + + + | Home Phone | | + + + | Preferred Language | Unknown | + + + | Marital Status | Single | + + + | Jainism Affiliation | Unknown | + + + | Race | Unknown | + + + | Ethnic Group | Unknown | + + + Author + + + | Author | [facility] | | | and [place]tarana | + + + | Organization | [facility] | | | and Avtarana [...] Team Providers + +------+ + | Care Owner Spa Director Name | Role | Phone | + [...] | | | | right wrist | [address] | | | | | [address] | [facility], | | | | | | [place], | [place] [address] | | | | | | [place] | Phone: | | | | | | [address] | [phone] | | | | | | Phone: | Fax: | | | | | | [phone] | [phone] | | | | | | Fax: | | | | | | | [phone] | | + +--------+ + + + + Encounter Details +--------+---------+ + + + | Date | Type | Department | Care Team | Description | +--------+---------+ + + + | 12/26/ | Office | [facility] | Abhijeet Herrera, | Injury of triangular | | 2019 | Visit | [facility] | MD [address] | fibrocartilage | | | | MEDICINE [place] | [place] [address] | complex (TFCC) of | | | | [address] | [phone] | right wrist, initial | | | | [place], [place] | | encounter (Primary | | | | [address] | | Dx) | | | | [phone] | | | +--------+---------+ + + + [...] might be different fro m the original. [facility]: Orthopedic Surgery Patient Name:Allison Redding [...] MD This document has been prepared with Kimbia voice recognition system. The possibility of "s ound alike" ict systems test engineer errors, and additions, or deletions may occur. [...]
--- OUTSIDE RECORDS SUMMARY | ~2019-08-24 | XMS | Encounter Summary ---
Demographics + + + | Address | [address] | | | [place] [address] | + + + | Home Phone | | + + + | Preferred Language | Unknown | + + + | Marital Status | Single | + + + | Orthodox Affiliation | Unknown | + + + | Race | Unknown | + + + | Ethnic Group | Unknown | + + + Author + + + | Author | [facility] | | | and [place]tar[place] | + + + | Organization | [facility] | | | and [place]tarana | [...] Team Providers + +------+ + | Care Gas Singer Name | Role | Phone | + [...] (Return to | | 2018 | | [place] [address] | [address] | work letter) | | | | BLVD [place], [place] | [place] [address] | | | | | [address] | [phone] | | | | | [phone] | | | +--------+ + + + [...]
[~2019-08-24 22:56] MED LIST changes: +ONDANSETRON ODT4 MG PO
--- OUTSIDE RECORDS SUMMARY | 2019-08-24 23:00 | XMS ---
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 06/28/2019 13:22 - Other Details: PATIENT LEFT AMA CRITERIA MET - [facility] - [facility] Guidelines [facility] KARLOS DEL ROSARIO Physician Sql Ssrs Ssis Developer 06/16/2019-Current PHONE: Unknown Guidelines [facility] [place] Guidelines Date: 06/20/2019 Care Coordination: Receives mental health services with [facility].\T\nbsp; Please contact [facility] regarding mental health concerns. Gurdeep/[place] Office: , [place] Office: [phone].\T\nbsp; [facility] Crisis: [phone]. [facility] [address] [place] [address] TOTAL 5 NOTE: Visits indicate total known visits. ED/UCC VISIT TRACKING (12 MO.) 08/24/2019 22:[facility] TYPE: Emergency COMPLAINT: - NAUSEA 06/28/2019 15:34 [facility] TYPE: Emergency DIAGNOSES: - Mild hyperemesis gravidarum - Emesis During - Dehydrated 06/28/2019 13:22 [facility] TYPE: Emergency COMPLAINT: - DEHYDRATION, URINE PROBLEM, 6 WKS PREG. 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
[2019-08-24] MEDS ORDERED: PROMETHAZINE HC25 M1 PO (23:07)
[2019-08-25] MEDS ORDERED: K-TAB ER20 MEQ PO (00:51)
--- NOTE | 2019-08-25 11:25 | EKG ---
[facility] [address] [place], [place] [address] Signed Normal sinus rhythm with sinus arrhythmia Nonspecific ST abnormality Abnormal ECG No previous ECGs available Confirmed by KARY LEYV MD ([id number]) on 08/25/2019 11:24:46 AM Electronically Signed By: KARY LEVY MD 08/25/19 1125 PATIENT NAME: BETSEY JEFFERY Electrocardiogram DATE OF : [birth year] PHYSICIAN: KARY LEVY MD REPORT #: [id number] REPORT IS CONFIDENTIAL AND NOT TO BE RELEASED WITHOUT AUTHORIZATION
== END 2019-08-25 01:28 | disposition home or self-care (01) ==
LOC: ED 22:56
DX: O99.282 Endocrine, nutritional and metabolic diseases complicating pregnancy, second trimester (principal); E87.6 Hypokalemia; O99.89 Other specified diseases and conditions complicating pregnancy, childbirth and the puerperium; R07.89 Other chest pain; Z3A.14 14 weeks gestation of pregnancy; Z87.891 Personal history of nicotine dependence; Z79.899 Other long term (current) drug therapy
CPT/HCPCS: 80048; 93005; 93010; 96361; 96374; 99285-25; J2405; J7030

== ENCOUNTER 2022-09-15 02:54 | Emergency (ER) | payer OTHER ==
[~2022-09-15] VITALS: Ht 160 cm; Wt 68.3 kg
[~2022-09-15 02:54] MED LIST changes: +K-TAB ER20 MEQ PO; +PROMETHAZINE HC25 M1 PO
[2022-09-15] MEDS ORDERED: HYDROXYZINE HCL25 MG PO (03:05)
[2022-09-15] MEDS ORDERED: AMOXICILLIN500 MG PO (03:05)
[2022-09-15] MEDS ORDERED: BUPROPION HCL150 M2 PO (03:06)
[2022-09-15] MEDS ORDERED: CYCLOBENZAPRINE5 MG PO (03:06)
[2022-09-15] MEDS ORDERED: IBUPROFEN600 MG PO (03:06)
[2022-09-15] MEDS ORDERED: CELEBREX100 MG PO (03:50)
[2022-09-15 04:06] VITALS: BP 119/79
== END 2022-09-15 03:56 | disposition home or self-care (01) ==
LOC: ED 02:54
DX: R07.89 Other chest pain (principal); Z87.891 Personal history of nicotine dependence; Z79.899 Other long term (current) drug therapy
CPT/HCPCS: 71045; 72070; 96372; 99284-25; J1790; J1885

== ENCOUNTER 2024-05-07 23:41 | Emergency (ER) | payer OTHER ==
[~2024-05-07] VITALS: Ht 160 cm; Wt 78.9 kg
[~2024-05-07 23:41] MED LIST changes: +BUPROPION HCL150 M2 PO; +CELEBREX100 MG PO; +CYCLOBENZAPRINE5 MG PO; +HYDROXYZINE HCL25 MG PO
[2024-05-07 23:59] LABS: BILIRUBIN, URINE NEGATIVE (negative); BLOOD/HGB, URINE TRACE-I (Negative); KETONE, URINE NEGATIVE (Negative); LEUK ESTERASE, URINE NEGATIVE (negative); NITRITE, URINE NEGATIVE (negative); PH, URINE 6.5 (5-7)
[2024-05-08 00:05] LABS: EPITHELIAL CELLS, URINE SQUAMOUS 3+ /lpf (0-1+)
[2024-05-08 00:05] LABS: BASOPHILS 0.3 % (0-2); EOSINOPHILS 0.9 % (0-6); HEMATOCRIT 40.9 % (35.0-50.0); HEMOGLOBIN 13.8 g/dL (12.0-18.0); LYMPHOCYTES 24.6 % (24-44); MCH 33.8 (27-36); MCHC 33.6 g/dl (30-36); MCV 100.6 fl (81-99); MONOCYTES 7.7 % (0-12); NEUTROPHILS 66.5 % (39-80); PLATELET COUNT 245 K/uL (140-440); RBC 4.07 M/ul (4.3-5.7); RDW 12.9 (10.5-15.0)
[2024-05-08 00:06] LABS: BACTERIA, URINE RARE /hpf (negative); CASTS, URINE NONE SEEN \\lpf; COLLECTION TYPE, URINE CLEAN CATCH; CRYSTALS, URINE NONE SEEN (0-1+); REFLEX CULTURE, URINE No (No); WHITE BLOOD CELLS, URINE 0-1 /HPF (0-5)
[2024-05-08] MEDS ORDERED: ondansetron HCL 4 MG/2 ML VIAL IV ONE (00:15)
[2024-05-08] MEDS ORDERED: KETOROLAC TROMETHAMINE 30 MG/ML VIAL IV ONE (00:15)
[2024-05-08] MEDS ORDERED: SODIUM CHLORIDE 0.9% 500 ML IV PRN (00:15)
[2024-05-08 00:24] LABS: ALBUMIN 3.7 g/dL (3.4-5.0); ALBUMIN/GLOBULIN RATIO 0.95 (1.1-2.4); ANION GAP 11.4 (7-21); BILIRUBIN, TOTAL 0.4 ng/dL (0.2-1.0); BUN/CREATININE RATIO 12.67 (6.0-28.6); CREATININE, SERUM 0.71 mg/dL (0.55-1.02); MAGNESIUM 1.8 mg/dL (1.8-2.4); POTASSIUM 3.4 mmol/L (3.5-5.1); PROTEIN, TOTAL 7.6 g/dL (6.4-8.2)
[2024-05-08] MEDS ORDERED: MELOXICAM15 MG PO (01:20)
[2024-05-08] MEDS ORDERED: CYCLOBENZAPRINE10 MG PO (01:20)
[2024-05-08 01:37] VITALS: BP 105/71
== END 2024-05-08 01:38 | disposition home or self-care (01) ==
LOC: ED 23:41
PROVIDERS: Family Medicine
DX: S39.011A Strain of muscle, fascia and tendon of abdomen, initial encounter (principal); X58.XXXA Exposure to other specified factors, initial encounter; Z87.891 Personal history of nicotine dependence; Z79.899 Other long term (current) drug therapy
CPT/HCPCS: 36415; 74176; 80053; 81001; 83690; 83735; 84703; 85025; 96374; 99284; J1885; J7040

== ENCOUNTER 2024-07-04 18:01 | Emergency (ER) | payer OTHER ==
[~2024-07-04] VITALS: Ht 160 cm; Wt 74.7 kg
[~2024-07-04 18:01] MED LIST changes: +CYCLOBENZAPRINE10 MG PO; +MELOXICAM15 MG PO
[2024-07-04] MEDS ORDERED: LACTATED RINGER'S 1,000 ML IV ONE (20:00)
[2024-07-04] MEDS ORDERED: ondansetron HCL 4 MG/2 ML VIAL IV ONE (20:00)
[2024-07-04] MEDS ORDERED: ALBUTEROL/IPRATROPIUM 3 ML NEB INH ONE (20:00)
[2024-07-04 20:07] LABS: BILIRUBIN, URINE POSITIVE (negative); BLOOD/HGB, URINE SMALL (Negative); KETONE, URINE >=80 (Negative); LEUK ESTERASE, URINE NEGATIVE (negative); NITRITE, URINE NEGATIVE (negative); PH, URINE 6.5 (5-7)
[2024-07-04 20:20] LABS: WHITE BLOOD CELLS, URINE 0-1 /HPF (0-5)
[2024-07-04 20:21] LABS: BACTERIA, URINE RARE /hpf (negative); CASTS, URINE NONE SEEN \\lpf; COLLECTION TYPE, URINE CLEAN CATCH; CRYSTALS, URINE NONE SEEN (0-1+); EPITHELIAL CELLS, URINE SQUAMOUS 2+ /lpf (0-1+); REFLEX CULTURE, URINE No (No)
[2024-07-04 20:27] LABS: BASOPHILS 0.4 % (0-2); EOSINOPHILS 0.3 % (0-6); HEMATOCRIT 41.3 % (35.0-50.0); HEMOGLOBIN 14.5 g/dL (12.0-18.0); LYMPHOCYTES 32.6 % (24-44); MCHC 35.1 g/dl (30-36); MCV 97.1 fl (81-99); NEUTROPHILS 49.7 % (39-80); PLATELET COUNT 202 K/uL (140-440); RBC 4.26 M/ul (4.3-5.7)
[2024-07-04 20:32] LABS: CORONAVIRUS COVID-19 AG NEGATIVE (NEGATIVE); INFLUENZA A AG NEGATIVE (NEGATIVE); INFLUENZA B AG NEGATIVE (NEGATIVE)
[2024-07-04 20:49] LABS: ALBUMIN 3.6 g/dL (3.4-5.0); ALBUMIN/GLOBULIN RATIO 0.78 (1.1-2.4); ANION GAP 14.1 (7-21); BILIRUBIN, TOTAL 0.6 mg/dL (0.2-1.0); BUN/CREATININE RATIO 13.84 (6.0-28.6); CREATININE, SERUM 0.65 mg/dL (0.55-1.02); POTASSIUM 3.1 mmol/L (3.5-5.1); PROTEIN, TOTAL 8.2 g/dL (6.4-8.2)
[2024-07-04] MEDS ORDERED: METHYLPREDNISOLO4 M1 PO (21:25)
[2024-07-04] MEDS ORDERED: ONDANSETRON ODT4 MG PO (21:25)
[2024-07-04] MEDS ORDERED: DEXAMETHASONE SOD PHOS 10 MG/ML VIAL IV ONE (21:30)
[2024-07-04] MEDS ORDERED: ONDANSETRON 4 MG HOME.PACK SL ONE (21:30)
[2024-07-04] MEDS ORDERED: INHALER, ASSIST DEVICES 1 EACH SPACER MISC ONE (21:30)
[2024-07-04] MEDS ORDERED: ALBUTEROL SULFATE 8 GM HOME.PACK INH ONE (21:30)
[2024-07-04 22:20] VITALS: BP 116/61
== END 2024-07-04 22:20 | disposition home or self-care (01) ==
LOC: ED 18:01
PROVIDERS: Internal Medicine
DX: J04.0 Acute laryngitis (principal); B97.89 Other viral agents as the cause of diseases classified elsewhere; Z87.891 Personal history of nicotine dependence
CPT/HCPCS: 36415; 71045; 80053; 81001; 83690; 83735; 84703; 85025; 87651; 94640; 94664; 96374; 96375; 99285-25; A9270; J1100; J2405; J7121

== ENCOUNTER 2024-08-22 14:36 | Emergency (ER) | payer OTHER ==
[~2024-08-22] VITALS: Ht 160 cm; Wt 76.5 kg
[~2024-08-22 14:36] MED LIST changes: +METHYLPREDNISOLO4 M1 PO
[2024-08-22] MEDS ORDERED: OXYCODONE-ACET1 EAC1 PO (14:46)
[2024-08-22] MEDS ORDERED: TRANSDERM-SCOP1 EACH (14:47)
[2024-08-22 15:47] LABS: BASOPHILS 0.8 % (0-2); EOSINOPHILS 0.6 % (0-6); HEMATOCRIT 38.5 % (35.0-50.0); HEMOGLOBIN 13.3 g/dL (12.0-18.0); LYMPHOCYTES 13.6 % (24-44); MCH 33.7 (27-36); MCHC 34.5 g/dl (30-36); MCV 97.7 fl (81-99); MONOCYTES 7.6 % (0-12); NEUTROPHILS 77.4 % (39-80); PLATELET COUNT 229 K/uL (140-440); RBC 3.94 M/ul (4.3-5.7); RDW 14.2 (10.5-15.0)
[2024-08-22 15:58] LABS: BILIRUBIN, URINE NEGATIVE (negative); BLOOD/HGB, URINE MODERATE (Negative); KETONE, URINE >=80 (Negative); LEUK ESTERASE, URINE NEGATIVE (negative); NITRITE, URINE NEGATIVE (negative)
[2024-08-22 16:03] LABS: ALBUMIN/GLOBULIN RATIO 1.14 (1.1-2.4); ANION GAP 14.8 (7-21); BILIRUBIN, TOTAL 0.7 mg/dL (0.2-1.0); BUN/CREATININE RATIO 12.16 (6.0-28.6); CALCIUM 8.8 mg/dL (8.5-10.1); CREATININE, SERUM 0.74 mg/dL (0.55-1.02); MAGNESIUM 2.1 mg/dL (1.8-2.4); POTASSIUM 3.8 mmol/L (3.5-5.1); PROTEIN, TOTAL 7.5 g/dL (6.4-8.2)
[2024-08-22 16:05] LABS: EPITHELIAL CELLS, URINE SQUAMOUS 3+ /lpf (0-1+)
[2024-08-22 16:06] LABS: BACTERIA, URINE RARE /hpf (negative); CASTS, URINE NONE SEEN \\lpf; COLLECTION TYPE, URINE CLEAN CATCH; CRYSTALS, URINE NONE SEEN (0-1+); REFLEX CULTURE, URINE No (No)
[2024-08-22 16:16] LABS: AMPHETAMINES, URINE NEGATIVE (NEGATIVE); BARBITURATES, URINE NEGATIVE (NEGATIVE); BENZODIAZEPINE, URINE NEGATIVE (NEGATIVE); BUPRENORPHINE, URINE NEGATIVE (NEGATIVE); CANNABINOID, URINE NEGATIVE (NEGATIVE); COCAINE, URINE POSITIVE (NEGATIVE); ECSTASY, URINE NEGATIVE (NEGATIVE); FENTANYL, URINE NEGATIVE (NEGATIVE); METHADONE, URINE NEGATIVE (NEGATIVE); OPIATES, URINE NEGATIVE (NEGATIVE); OXYCODONE, URINE NEGATIVE (NEGATIVE); PHENCYCLIDINE, URINE NEGATIVE (NEGATIVE)
[2024-08-22 18:35] VITALS: BP 104/74
== END 2024-08-22 18:30 | disposition home or self-care (01) ==
LOC: ED 14:36
PROVIDERS: Emergency Medicine
DX: R20.2 Paresthesia of skin (principal); Z87.891 Personal history of nicotine dependence
CPT/HCPCS: 36415; 80053; 80307; 81001; 83735; 85025; 99284

== ENCOUNTER 2024-12-15 02:19 | Emergency (ER) | payer OTHER ==
[~2024-12-15] VITALS: Ht 160 cm; Wt 65.5 kg
[~2024-12-15 02:19] MED LIST changes: +HYDROXYZINE HCL50 MG PO; +OXYCODONE-ACET1 EAC1 PO; +TRANSDERM-SCOP1 EACH; +VENTOLIN HFA18 GM INH
--- OUTSIDE RECORDS SUMMARY | 2024-12-15 02:26 | XMS ---
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: BETSEY JEFFERY Security Line Server Events No recent Security Events currently on file CRITERIA MET - [facility] - 2 Visits in 30 Days CARE PROVIDERS KARLOS DEL ROSARIO Physician Coordinator Of Library Services 06/16/2019-Current PHONE: Unknown -, [facility] Dentist: Dermatology Physician Current [place] PHONE: [phone] TOOTIE GONZALEZ [facility] Current PHONE: [phone] Care Guidelines exist for the following facilities: [facility] ( 06/20/2019 ) Sushila VISIT COUNT (12 MO.) 5 [facility] [place] TOTAL 5 NOTE: Visits indicate total known visits. ED/UCC VISIT TRACKING (12 MO.) 12/15/2024 02:20 [facility] [place] TYPE: Emergency COMPLAINT: - SOB/WEAK 12/11/2024 12:06 [facility] [place] TYPE: Emergency COMPLAINT: - HIVES 08/22/2024 14:37 [facility] [place] TYPE: Emergency COMPLAINT: - LEG NUMBNESS DIAGNOSES: - Paresthesia of skin - Personal history of nicotine dependence 07/04/2024 18:02 [facility] [place] TYPE: Emergency COMPLAINT: - FLU SYMPTOMS DIAGNOSES: - Acute laryngitis - Cough, unspecified - Other viral agents as the cause of diseases classified elsewhere - Personal history of nicotine dependence 05/07/2024 23:42 [facility] [place] TYPE: Emergency COMPLAINT: - ABDOMINAL PAIN DIAGNOSES: - Exposure to other specified factors, initial encounter - Left lower quadrant pain - 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
[2024-12-15] MEDS ORDERED: LORazepam 2 MG/ML VIAL IV ONE (02:45)
[2024-12-15] MEDS ORDERED: LACTATED RINGER'S 1,000 ML IV ONE (02:45)
[2024-12-15 02:50] LABS: BASOPHILS 0.5 % (0.1-1.2); EOSINOPHILS 0.6 % (0.7-5.8); LYMPHOCYTES 29.3 % (19.3-51.7); MCH 32.7 PG (25.6-32.2); MCHC 34.2 g/dL (32.2-35.5); MCV 95.6 fL (79.4-94.8); MONOCYTES 7.0 % (4.7-12.5); NEUTROPHILS 62.2 % (34.0-71.1); RBC 4.53 M/uL (3.93-5.22)
[2024-12-15 02:52] LABS: BLOOD/HGB, URINE TRACE-I (Negative); KETONE, URINE NEGATIVE (Negative); LEUK ESTERASE, URINE NEGATIVE (negative); NITRITE, URINE NEGATIVE (negative)
[2024-12-15 03:06] LABS: AMPHETAMINES, URINE NEGATIVE (NEGATIVE); BARBITURATES, URINE NEGATIVE (NEGATIVE); BENZODIAZEPINE, URINE NEGATIVE (NEGATIVE); CANNABINOID, URINE NEGATIVE (NEGATIVE); COCAINE, URINE POSITIVE (NEGATIVE); ECSTASY, URINE NEGATIVE (NEGATIVE); FENTANYL, URINE NEGATIVE (NEGATIVE); METHADONE, URINE NEGATIVE (NEGATIVE); OPIATES, URINE NEGATIVE (NEGATIVE); OXYCODONE, URINE NEGATIVE (NEGATIVE); PHENCYCLIDINE, URINE NEGATIVE (NEGATIVE)
[2024-12-15 03:10] LABS: BACTERIA, URINE NONE SEEN /hpf (negative); CASTS, URINE NONE SEEN \\lpf; CRYSTALS, URINE NONE SEEN (0-1+); EPITHELIAL CELLS, URINE SQUAMOUS 4+ /lpf (0-1+); REFLEX CULTURE, URINE No (No)
[2024-12-15 03:21] LABS: ALT (SGPT) 32.0 U/L (14-59); AST (SGOT) 18.0 U/L (15-37); GLOMERULAR FILTRATION RATE,EST 100.0 mL/min (>60); PROTEIN, TOTAL 8.3 g/dL (6.4-8.2); TSH, 3RD GENERATION 0.773 uIU/mL (0.358-3.740); UREA NITROGEN 14.0 mg/dL (7-18)
[2024-12-15 03:51] VITALS: BP 125/88
== END 2024-12-15 03:53 | disposition home or self-care (01) ==
LOC: ED 02:19
PROVIDERS: Internal Medicine
DX: F41.0 Panic disorder [episodic paroxysmal anxiety] (principal); F14.90 Cocaine use, unspecified, uncomplicated; F41.1 Generalized anxiety disorder; Z87.891 Personal history of nicotine dependence; Z88.8 Allergy status to other drugs, medicaments and biological substances; Z79.899 Other long term (current) drug therapy
CPT/HCPCS: 36415; 71045; 80053; 80307; 81001; 83735; 84443; 84703; 85025; 96374; 99284-25; J2060; J7121